=== PATIENT | male | born 1965 | race Hispanic/Latino ===

== ENCOUNTER 2017-01-23 09:58 | Outpatient (CLI) | payer BC ==
[2017-01-23] MEDS ORDERED: XYLOCAINE TOPICAL 4% TP ONE (11:30)
== END 2017-01-23 09:59 | disposition home or self-care (01) ==
LOC: WOUND 09:58
PROVIDERS: ATTEND Internal Medicine
DX: E11.622 Type 2 diabetes mellitus with other skin ulcer (principal); L98.491 Non-pressure chronic ulcer of skin of other sites limited to breakdown of skin; E78.4 Other hyperlipidemia; F41.9 Anxiety disorder, unspecified; E03.9 Hypothyroidism, unspecified; Z96.659 Presence of unspecified artificial knee joint
CPT/HCPCS: G0463-25

== ENCOUNTER 2017-01-30 09:51 | Outpatient (CLI) | payer BC ==
[2017-01-30] MEDS ORDERED: XYLOCAINE TOPICAL 4% TP ONE (10:21)
== END 2017-01-30 09:52 | disposition home or self-care (01) ==
LOC: WOUND 09:51
PROVIDERS: ATTEND Internal Medicine
DX: E11.622 Type 2 diabetes mellitus with other skin ulcer (principal); L98.421 Non-pressure chronic ulcer of back limited to breakdown of skin; E78.4 Other hyperlipidemia; F41.9 Anxiety disorder, unspecified; E03.9 Hypothyroidism, unspecified; Z96.659 Presence of unspecified artificial knee joint

== ENCOUNTER 2017-02-06 09:59 | Outpatient (CLI) | payer BC ==
[2017-02-06] MEDS ORDERED: XYLOCAINE TOPICAL 4% TP ONE ×2 (11:34→11:42)
== END 2017-02-06 10:00 | disposition home or self-care (01) ==
LOC: WOUND 09:59
PROVIDERS: ATTEND Internal Medicine
DX: E11.622 Type 2 diabetes mellitus with other skin ulcer (principal); L98.491 Non-pressure chronic ulcer of skin of other sites limited to breakdown of skin; L02.232 Carbuncle of back [any part, except buttock and flank]; E03.8 Other specified hypothyroidism; E78.4 Other hyperlipidemia; F41.9 Anxiety disorder, unspecified; Z96.659 Presence of unspecified artificial knee joint; Z72.89 Other problems related to lifestyle
CPT/HCPCS: 97608

== ENCOUNTER 2017-02-13 08:14 | Outpatient (CLI) | payer BC ==
[2017-02-13] MEDS ORDERED: XYLOCAINE TOPICAL 4% TP ONE ×2 (08:42→08:43)
== END 2017-02-13 08:15 | disposition home or self-care (01) ==
LOC: WOUND 08:14
PROVIDERS: ATTEND Internal Medicine
DX: L02.212 Cutaneous abscess of back [any part, except buttock and flank] (principal); E11.622 Type 2 diabetes mellitus with other skin ulcer; L98.491 Non-pressure chronic ulcer of skin of other sites limited to breakdown of skin; L02.232 Carbuncle of back [any part, except buttock and flank]; E03.8 Other specified hypothyroidism; E78.4 Other hyperlipidemia; F41.9 Anxiety disorder, unspecified; Z72.89 Other problems related to lifestyle; Z96.659 Presence of unspecified artificial knee joint
CPT/HCPCS: 97608

== ENCOUNTER 2017-02-20 08:05 | Outpatient (CLI) | payer BC ==
[2017-02-20] MEDS ORDERED: XYLOCAINE TOPICAL 4% TP ONE (09:00)
== END 2017-02-20 08:06 | disposition home or self-care (01) ==
LOC: WOUND 08:05
PROVIDERS: ATTEND Internal Medicine
DX: E11.622 Type 2 diabetes mellitus with other skin ulcer (principal); L98.491 Non-pressure chronic ulcer of skin of other sites limited to breakdown of skin; E03.8 Other specified hypothyroidism; E78.4 Other hyperlipidemia; F41.9 Anxiety disorder, unspecified; Z96.659 Presence of unspecified artificial knee joint; Z72.89 Other problems related to lifestyle

== ENCOUNTER 2017-03-06 08:03 | Outpatient (CLI) | payer BC ==
[2017-03-06] MEDS ORDERED: XYLOCAINE TOPICAL 4% TP ONE ×2 (08:15→08:24)
== END 2017-03-06 08:04 | disposition home or self-care (01) ==
LOC: WOUND 08:03
PROVIDERS: ATTEND Internal Medicine
DX: L02.232 Carbuncle of back [any part, except buttock and flank] (principal); E78.4 Other hyperlipidemia; F41.9 Anxiety disorder, unspecified; E78.5 Hyperlipidemia, unspecified; E03.9 Hypothyroidism, unspecified; E11.9 Type 2 diabetes mellitus without complications; Z96.659 Presence of unspecified artificial knee joint; Z72.89 Other problems related to lifestyle

== ENCOUNTER 2017-03-20 08:07 | Outpatient (CLI) | payer BC ==
[2017-03-20] MEDS ORDERED: XYLOCAINE TOPICAL 4% TP ONE ×2 (08:17→08:32)
[2017-03-20] MEDS ORDERED: SILVER NITRATE TP ONE ×2 (09:03→09:22)
== END 2017-03-20 08:08 | disposition home or self-care (01) ==
LOC: WOUND 08:07
PROVIDERS: ATTEND Internal Medicine
DX: L03.312 Cellulitis of back [any part except buttock and flank] (principal); L02.232 Carbuncle of back [any part, except buttock and flank]; E78.4 Other hyperlipidemia; E03.8 Other specified hypothyroidism; F41.9 Anxiety disorder, unspecified; Z96.659 Presence of unspecified artificial knee joint; Z72.89 Other problems related to lifestyle
CPT/HCPCS: 17250

== ENCOUNTER 2017-04-03 08:15 | Outpatient (CLI) | payer BC ==
[2017-04-03] MEDS ORDERED: XYLOCAINE TOPICAL 4% TP ONE ×2 (08:23→08:35)
[2017-04-03] MEDS ORDERED: SILVER NITRATE TP ONE ×2 (08:45→15:15)
== END 2017-04-03 08:16 | disposition home or self-care (01) ==
LOC: WOUND 08:15
PROVIDERS: ATTEND Internal Medicine
DX: L02.212 Cutaneous abscess of back [any part, except buttock and flank] (principal); E03.8 Other specified hypothyroidism; E78.4 Other hyperlipidemia; F41.9 Anxiety disorder, unspecified; Z96.659 Presence of unspecified artificial knee joint; Z72.89 Other problems related to lifestyle
CPT/HCPCS: 17250